=== PATIENT | female | born 1985 | race Caucasian/White ===

== ENCOUNTER 2017-06-02 07:07 | Inpatient (IN) | payer OTHER ==
[2017-06-02] MEDS: Lactated Ringers 1,000 ML IV SCH ×2 (07:25→12:53)
[2017-06-02] MEDS ORDERED: Nalbuphine 20 MG/1 ML Amp IVPUSH PRN (07:33)
[2017-06-02] MEDS ORDERED: Ondansetron 4 MG/2 ML SDV IVPUSH PRN ×2 (07:33→08:24)
[2017-06-02] MEDS ORDERED: Sodium Chloride 0.9% 10 ML Syringe FLUSH PRN (07:33)
[2017-06-02] MEDS ORDERED: Oxytocin/Lactated Ringers 10 UNIT/1,000 ML BAG IV SCH ×2 (07:45)
--- NOTE | 2017-06-02 07:58 | PCM.LDHP ---
L&D History of Present Illness - General Date of Service: 06/02/17 Admit Problem/Dx: Patient Status Order with Admit Dx/Problem 06/02/17 07:39 Patient Status [ADT] Routine Admission Diagnosis/Problem Admission Diagnosis/Problem Normal Source of Information: Patient History Limitations: Reports: No Limitations - History of Present Illness Introduction:: Patient is a 32 y/o at 39 6/7 wks who presents for IOL. Doing well. Some contractions, but nothing patterned. - Related Data Allergies/Adverse Reactions: Allergies Allergy/AdvReac Type Severity Reaction Status Date / Time No Known Allergies Allergy Verified 01/03/16 08:27 Home Medications: Home Meds Vit W-Ca,Fe,FA(<1 mg) [ Vitamins] 1 tab PO DAILY 01/03/16 [ History] Acetaminophen [Tylenol] 650 mg PO Q6H PRN #0 tablet 01/05/16 [Rx] Benzocaine/Menthol [Dermoplast Pain Relief [place]] 1 spray TOP ASDIRECTED PRN #0 canister 01/05/16 [Rx] Docusate Sodium [Colace] 100 mg PO BID PRN #0 cap 01/05/16 [Rx] Ibuprofen [IJD: Ibuprofen] 200 - 600 mg PO Q6H PRN #0 tablet 01/05/16 [Rx] Witch Oneyda [Tucks] 1 pad TOP ASDIRECTED PRN #0 pad 01/05/16 [Rx] Past Medical History [employer] History: Reports: : 4 Para: 3 LMP (Approximate): Psychiatric History: Reports: None, Depression (History of) - Past Surgical History HEENT Surgical History: Reports: Naso-Sinus Surgery, Oral Surgery, Tonsillectomy Musculoskeletal Surgical History: Reports: Other (See Below) (Knee surgery - left) Social & Family History - Family History Family Medical History: Noncontributory - Tobacco Use Smoking Status *Q: Never Smoker Second Hand Smoke Exposure: No - Caffeine Use Caffeine Use: Reports: Coffee, Soda - Alcohol Use Alcohol Use History: No Days Per Week of Alcohol Use: 0 - Recreational Drug Use Recreational Drug Use: No H&P Review of Systems - Review of Systems: Review Of Systems: See Below General: Reports: No Symptoms Pulmonary: Reports: No Symptoms Cardiovascular: Reports: No Symptoms Gastrointestinal: Reports: No Symptoms Genitourinary: Reports: No Symptoms Musculoskeletal: Reports: No Symptoms Psychiatric: Reports: No Symptoms Neurological: Reports: No Symptoms L&D Exam - Exam Exam: See Below - Vital Signs Weight: 78.471 kg - OB Specific Contraction Intensity: Irritability Movement: Active Heart Tones: Present Heart Tones per Min: 125 Heart Rate (FHR) Variability: Moderate (6-25 bmp) Presentation: Vertex - Osman Score Osman Score Cervix Position: Midposition Osman Score Consistency: Soft Osman Score Effacement: 51-70% Osman Score Dilation: 1-2 cm Osman Score Infant's Station: -2 Osman Score Total: 7 - Exam General: Alert, Oriented, Cooperative Lungs: Clear to Auscultation, Normal Respiratory Effort Cardiovascular: Regular Rate, Regular Rhythm GI/Abdominal Exam: Soft, Non-Tender Genitourinary: Normal external exam Extremities: Normal Inspection Skin: Warm, Dry, Intact - Problem List (1) 39 weeks gestation of SNOMED Code(s): 65917711 ICD Code: Z3A.39 - 39 WEEKS GESTATION OF Status: Acute Current Visit: No (2) Elective induction of labor planned SNOMED Code(s): 566130992 ICD Code: [id number] - Status: Acute Current Visit: No Problem List Initiated/Reviewed/Updated: Yes Orders Last 24hrs: Active Orders 24 hr Category Date Time Status Patient Status [ADT] Routine ADT 06/02/17 07:39 Active Activity as Tolerated [RC] PFP Care 06/02/17 07:34 Active Communication Order [RC] ASDIRECTED Care 06/02/17 07:34 Active Communication Order [RC] ASDIRECTED Care 06/02/17 07:34 Active Communication Order [RC] ASDIRECTED Care 06/02/17 07:34 Active Heart Tones [RC] ASDIRECTED Care 06/02/17 07:39 Active Notify Provider [RC] ASDIRECTED Care 06/02/17 07:34 Active Notify Provider [RC] PRN Care 06/02/17 07:34 Active Peripheral IV Care [RC] . DIRECTED Care 06/02/17 07:39 Active Up ad Claudette [RC] ASDIRECTED Care 06/02/17 07:38 Active Vaginal Exam [RC] ASDIRECTED Care 06/02/17 07:34 Active Vital Signs [RC] ASDIRECTED Care 06/02/17 07:34 Active Vital Signs [RC] PER UNIT ROUTINE Care 06/02/17 07:34 Active Regular Diet [DIET] Diet 06/02/17 Breakfast Active CBC W/O DIFF,HEMOGRAM [HEME] Routine Lab 06/02/17 07:33 Ordered TYPE AND SCREEN [BBK] Routine Lab 06/02/17 07:33 Ordered Lactated Ringers [Ringers, Lactated] 1,000 ml Med 06/02/17 07:45 Active IV ASDIRECTED Nalbuphine [Nubain] Med 06/02/17 07:33 Active 10 mg IVPUSH Q2H PRN Ondansetron [Zofran] Med 06/02/17 07:33 Active 4 mg IVPUSH Q4H PRN Oxytocin/Lactated Ringers [Pitocin in LR 10 Units/1,000 Med 06/02/17 07:45 Active ML] 10 unit in 1,000 ml IV .CONTINUOUS Oxytocin/Lactated Ringers [Pitocin in LR 10 Units/1,000 Med 06/02/17 07:45 Active ML] 10 unit in 1,000 ml IV TITRATE Sodium Chloride 0.9% [Saline Flush] Med 06/02/17 07:33 Active 10 ml FLUSH ASDIRECTED PRN Electronic Heart Tones Ext w TOCO [WOMSER] Oth 06/02/17 07:34 Ordered Routine Electronic Heart Tones Internal [WOMSER] Per Unit Oth 06/02/17 07:34 Ordered Routine Peripheral IV Insertion Adult [OM.PC] Routine Oth 06/02/17 07:34 Ordered Resuscitation Status Routine Resus Stat 06/02/17 07:33 Ordered Medication Orders Lactated Ringer's (Ringers, Lactated) 1,000 mls @ 40 mls/hr IV ASDIRECTED ROHIT Oxytocin/Lactated Ringer's (Pitocin In Lr 10 Units/1,000 Ml) 10 unit in 1,000 mls @ 12 mls/hr IV TITRATE ROHIT; Protocol Oxytocin/Lactated Ringer's (Pitocin In Lr 10 Units/1,000 Ml) 10 unit in 1,000 mls @ 500 mls/hr IV .CONTINUOUS ROHIT Nalbuphine HCl (Nubain) 10 mg IVPUSH Q2H PRN PRN Reason: Pain (moderate 4-6) Ondansetron HCl (Zofran) 4 mg IVPUSH Q4H PRN PRN Reason: Nausea/Vomiting Sodium Chloride (Saline Flush) 10 ml FLUSH ASDIRECTED PRN PRN Reason: Keep Vein Open Assessment/Plan Comment:: 32 y/o at 39 6/7 wks who presents for elective IOL * CBC and T&S * GBS negative, no need for antibiotics * Pitocin with eventual AROM for IOL * Pain management per patient preference * Anticipate
[2017-06-02] MEDS ORDERED: Calcium Carbonate 500 MG Tab.Chew PO PRN (08:03)
[2017-06-02] MEDS ORDERED: fentaNYL 100 MCG/2 ML SDV EPIDUR PRN (08:24)
[2017-06-02] MEDS ORDERED: ePHEDrine 50 MG/ML SDV IVPUSH PRN (08:24)
[2017-06-02] MEDS ORDERED: Bupivacaine/fentaNYL/NS 100 ML Bag EPIDUR SCH (08:30)
--- NOTE | 2017-06-02 08:32 | PCM.PREANE ---
Preanesthetic Assessment - Anesthesia/Transfusion/Family Hx Anesthesia History: Prior Anesthesia Without Reaction Family History of Anesthesia Reaction: No Transfusion History: No Prior Transfusion(s) Intubation History: Unknown - Review of Systems General: No Symptoms Pulmonary: Cough Cardiovascular: No Symptoms Gastrointestinal: No Symptoms (GERD) Neurological: No Symptoms Other: Reports: None (nasal congestion noted) - Physical Assessment NPO Status Date: 06/02/17 NPO Status Time: 06:30 Pulse: 74 O2 Sat by Pulse Oximetry: 99 Respiratory Rate: 16 Blood Pressure: 140/85 Temperature: 36.8 C Vital Signs: Last Vital Signs Temp Pulse 74 06/02/17 08:01 Resp BP Pulse Ox Height: 1.52 m Weight: 78.471 kg ASA Class: 2 Mental Status: Alert & Oriented x3 Airway Class: Mallampati = 2 Dentition: Reports: Normal Dentition, Caries Thyro-Mental Finger Breadths: 3 Mouth Opening Finger Breadths: 3 ROM/Head Extension: Full Lungs: Clear to Auscultation, Normal Respiratory Effort Cardiovascular: Regular Rate, Regular Rhythm, No Murmurs - Lab Values: Laboratory Last Values WBC 11.59 K/mm3 (3.98-10.04) H 06/02/17 07:50 RBC 4.27 M/mm3 (3.98-5.22) 06/02/17 07:50 Hgb 12.7 gm/L (11.2-15.7) 06/02/17 07:50 Hct 38.0 % (34.1-44.9) 06/02/17 07:50 MCV 89.0 fl (79.4-94.8) 06/02/17 07:50 MCH 29.7 pg (25.6-32.2) 06/02/17 07:50 MCHC 33.4 g/dl (32.2-35.5) 06/02/17 07:50 RDW Std Deviation 41.0 fL (36.4-46.3) 06/02/17 07:50 Plt Count 187 K/mm3 (182-369) 06/02/17 07:50 MPV 9.3 fl (9.4-12.3) L 06/02/17 07:50 Above labs reviewed and noted and within acceptable ranges to proceed with requested epidural. 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: Psychiatric History: Reports: None, Depression (History of) - Past Surgical History HEENT Surgical History: Reports: Naso-Sinus Surgery, Oral Surgery, Tonsillectomy Musculoskeletal Surgical History: Reports: Other (See Below) (Knee surgery - left) - SUBSTANCE USE Smoking Status *Q: Never Smoker Tobacco Use Within Last Twelve Months: No Second Hand Smoke Exposure: No Days Per Week of Alcohol Use: 0 Recreational Drug Use History: No - HOME MEDS Home Medications: Home Meds Vit W-Ca,Fe,FA(<1 mg) [ Vitamins] 1 tab PO DAILY 01/03/16 [ History] Acetaminophen [Tylenol] 650 mg PO Q6H PRN #0 tablet 01/05/16 [Rx] Benzocaine/Menthol [Dermoplast Pain Relief [place]] 1 spray TOP ASDIRECTED PRN #0 canister 01/05/16 [Rx] Docusate Sodium [Colace] 100 mg PO BID PRN #0 cap 01/05/16 [Rx] Ibuprofen [IJD: Ibuprofen] 200 - 600 mg PO Q6H PRN #0 tablet 01/05/16 [Rx] Witch Oneyda [Tucks] 1 pad TOP ASDIRECTED PRN #0 pad 01/05/16 [Rx] - CURRENT (IN HOUSE) MEDS Current Meds: Current Medications Calcium Carbonate/Glycine (Tums) 1,000 mg PO Q2H PRN PRN Reason: Indigestion Ephedrine Sulfate (Ephedrine Sulfate) 5 mg IVPUSH ASDIRECTED PRN PRN Reason: Hypotension Fentanyl (Sublimaze) 100 mcg EPIDUR Q3H PRN PRN Reason: Pain Fentanyl/Bupivacaine HCl (Fentanyl/Bupivacaine/Ns 2 Mcg-0.125% 100 Ml) 100 ml EPIDUR ASDIRECTED ROHIT Lactated Ringer's (Ringers, Lactated) 1,000 mls @ 40 mls/hr IV ASDIRECTED ROHIT Oxytocin/Lactated Ringer's (Pitocin In Lr 10 Units/1,000 Ml) 10 unit in 1,000 mls @ 12 mls/hr IV TITRATE ROHIT; Protocol Oxytocin/Lactated Ringer's (Pitocin In Lr 10 Units/1,000 Ml) 10 unit in 1,000 mls @ 500 mls/hr IV .CONTINUOUS ROHIT Nalbuphine HCl (Nubain) 10 mg IVPUSH Q2H PRN PRN Reason: Pain (moderate 4-6) Ondansetron HCl (Zofran) 4 mg IVPUSH Q4H PRN PRN Reason: Nausea/Vomiting Ondansetron HCl (Zofran) 4 mg IVPUSH ONETIME PRN PRN Reason: Nausea/Vomiting Sodium Chloride (Saline Flush) 10 ml FLUSH ASDIRECTED PRN PRN Reason: Keep Vein Open
--- NOTE | 2017-06-02 17:21 | PCM.DEL ---
L & D Note - General Info Date of Service: 06/02/17 - Delivery Note Labor: Induced by ARM, Induced by Oxytocin Delivery Outcome: Livebirth Infant Delivery Method: Spontaneous Vaginal Delivery-Single Infant Delivery Mode: Spontaneous Presentation: Right Occiput Anterior (YEISON) Nuchal Cord: Present (Tight, not reduced) Anesthesia Type: Epidural Amniotic Fluid Description: Clear Episiotomy Type: None Laceration: None Placenta: Intact, Spontaneous Cord: 3 Vessels Estimated Blood Loss: 250 Resuscitation Needed: Yes [place]: Bulb Syringe, Stimulated, Warmed, [place] Used Delivery Comments (Free Text/Narrative):: Patient found to be complete and began pushing. With maternal pushing effort head delivered from YEISON presentation. Tight nuchal cord present and not reduced. With gentle downward traction the shoulders and body delivered. Infant placed on maternal abdomen. Cord clamped and cut. Cord blood obtained. Placenta allowed time to separate and expelled intact. No lacerations noted - Patient Data Vitals - Most Recent: Last Vital Signs Temp 36.8 C 06/02/17 08:44 Pulse 66 06/02/17 13:31 Resp 16 06/02/17 08:44 BP 142/78 H 06/02/17 13:31 Pulse Ox 99 06/02/17 08:44 Weight - Most Recent: 78.471 kg I&O - Last 24 Hours: Intake & Output 06/02/17 06/02/17 06/02/17 06:59 14:59 22:59 Intake Total 1000 Balance 1000 Lab Results Last 24 Hours: Laboratory Results - last 24 hr 06/02/17 06/02/17 Range/Units 07:50 07:50 WBC 11.59 H (3.98-10.04) K/mm3 RBC 4.27 (3.98-5.22) M/mm3 Hgb 12.7 (11.2-15.7) gm/L Hct 38.0 (34.1-44.9) % MCV 89.0 (79.4-94.8) fl MCH 29.7 (25.6-32.2) pg MCHC 33.4 (32.2-35.5) g/dl RDW Std Deviation 41.0 (36.4-46.3) fL Plt Count 187 (182-369) K/mm3 MPV 9.3 L (9.4-12.3) fl Blood Type O POSITIVE Gel Antibody Screen Negative Med Orders - Current: Current Medications Calcium Carbonate/Glycine (Tums) 1,000 mg PO Q2H PRN PRN Reason: Indigestion Last Admin: 06/02/17 08:32 Dose: 1,000 mg Ephedrine Sulfate (Ephedrine Sulfate) 5 mg IVPUSH ASDIRECTED PRN PRN Reason: Hypotension Fentanyl (Sublimaze) 100 mcg EPIDUR Q3H PRN PRN Reason: Pain Last Admin: 06/02/17 12:47 Dose: 100 mcg Fentanyl/Bupivacaine HCl (Fentanyl/Bupivacaine/Ns 2 Mcg-0.125% 100 Ml) 100 ml EPIDUR ASDIRECTED ROHIT Last Admin: 06/02/17 12:46 Dose: 100 ml Lactated Ringer's (Ringers, Lactated) 1,000 mls @ 40 mls/hr IV ASDIRECTED ROHIT Last Admin: 06/02/17 12:53 Dose: 250 mls/hr Oxytocin/Lactated Ringer's (Pitocin In Lr 10 Units/1,000 Ml) 10 unit in 1,000 mls @ 12 mls/hr IV TITRATE ROHIT; Protocol Last Titration: 06/02/17 10:12 Dose: 8 munits/min, 48 mls/hr Oxytocin/Lactated Ringer's (Pitocin In Lr 10 Units/1,000 Ml) 10 unit in 1,000 mls @ 500 mls/hr IV .CONTINUOUS ROHIT Nalbuphine HCl (Nubain) 10 mg IVPUSH Q2H PRN PRN Reason: Pain (moderate 4-6) Ondansetron HCl (Zofran) 4 mg IVPUSH Q4H PRN PRN Reason: Nausea/Vomiting Ondansetron HCl (Zofran) 4 mg IVPUSH ONETIME PRN PRN Reason: Nausea/Vomiting Sodium Chloride (Saline Flush) 10 ml FLUSH ASDIRECTED PRN PRN Reason: Keep Vein Open - Problem List & Annotations (1) 39 weeks gestation of SNOMED Code(s): 52147923 Code(s): Z3A.39 - 39 WEEKS GESTATION OF Status: Acute Current Visit: No (2) Elective induction of labor planned SNOMED Code(s): 004563752 Code(s): HGU5549 - Status: Acute Current Visit: No (3) Vaginal delivery SNOMED Code(s): 565975450 Code(s): O80 - ENCOUNTER FOR FULL-TERM UNCOMPLICATED DELIVERY Status: Acute Current Visit: No - Problem List Review Problem List Initiated/Reviewed/Updated: Yes - My Orders Last 24 Hours: My Active Orders 06/02/17 07:33 Nalbuphine [Nubain] 10 mg IVPUSH Q2H PRN Ondansetron [Zofran] 4 mg IVPUSH Q4H PRN Sodium Chloride 0.9% [Saline Flush] 10 ml FLUSH ASDIRECTED PRN Resuscitation Status Routine 06/02/17 07:34 Activity as Tolerated [RC] PFP Communication Order [RC] ASDIRECTED Communication Order [RC] ASDIRECTED Vital Signs [RC] ASDIRECTED Electronic Heart Tones Ext w TOCO [WOMSER] Routine Electronic Heart Tones Internal [WOMSER] Per Unit Routine Peripheral IV Insertion Adult [OM.PC] Routine 06/02/17 07:38 Up ad Claudette [RC] ASDIRECTED 06/02/17 07:39 Patient Status [ADT] Routine Heart Tones [RC] ASDIRECTED Peripheral IV Care [RC] Q2HR 06/02/17 07:45 Lactated Ringers [Ringers, Lactated] 1,000 ml IV ASDIRECTED Oxytocin/Lactated Ringers [Pitocin in LR 10 Units/1,000 ML] 10 unit in 1,000 ml IV .CONTINUOUS Oxytocin/Lactated Ringers [Pitocin in LR 10 Units/1,000 ML] 10 unit in 1,000 ml IV TITRATE 06/02/17 08:03 Calcium Carbonate [Tums] 1,000 mg PO Q2H PRN 06/02/17 Breakfast Regular Diet [DIET] - Assessment Assessment:: 32 y/o G4 now P4004 PPD#0 from at 39 6/7 wks - Plan Plan:: * Routine cares * Encourage breast feeding * Discharge home in 1-2 days
[2017-06-02] MEDS ORDERED: Bupivacaine 0.25% 10 ML SDV ONE (19:00)
[2017-06-02] MEDS ORDERED: Docusate Sodium 100 MG Cap PO PRN (19:23)
[2017-06-02] MEDS ORDERED: Acetaminophen 325 MG Tab PO PRN (19:23)
[2017-06-02] MEDS ORDERED: Benzocaine/Menthol 20%-0.5% Spray 56 GM Canister TOP PRN (19:23)
[2017-06-02] MEDS ORDERED: Witch Hazel Medicated Pads 100/Jar TOP PRN (19:23)
[2017-06-02] MEDS ORDERED: Lanolin 100% Cream 7 GM Tube TOP PRN (19:23)
[2017-06-02] MEDS: Ibuprofen 600 MG Tab PO PRN (20:29)
--- NOTE | 2017-06-03 02:00 | PCM.PNPP ---
- General Info Date of Service: 06/03/17 Functional Status: Reports: Pain Controlled, Tolerating Diet, Ambulating, Urinating - Review of Systems General: Reports: No Symptoms Pulmonary: Reports: No Symptoms Cardiovascular: Reports: No Symptoms Gastrointestinal: Reports: No Symptoms Genitourinary: Reports: No Symptoms Musculoskeletal: Reports: No Symptoms - Patient Data Vital Signs - Most Recent: Last Vital Signs Temp 36.7 C 06/02/17 20:30 Pulse 55 L 06/02/17 20:30 Resp 16 06/02/17 20:30 BP 116/68 06/02/17 20:30 Pulse Ox 98 06/02/17 20:30 Weight - Most Recent: 78.471 kg I&O - Last 24 Hours: Intake & Output 06/02/17 06/02/17 06/03/17 14:59 22:59 06:59 Intake Total 1000 60 Output Total 1000 Balance 1000 -940 Lab Results - Last 24 Hours: Laboratory Results - last 24 hr 06/02/17 06/02/17 Range/Units 07:50 07:50 WBC 11.59 H (3.98-10.04) K/mm3 RBC 4.27 (3.98-5.22) M/mm3 Hgb 12.7 (11.2-15.7) gm/L Hct 38.0 (34.1-44.9) % MCV 89.0 (79.4-94.8) fl MCH 29.7 (25.6-32.2) pg MCHC 33.4 (32.2-35.5) g/dl RDW Std Deviation 41.0 (36.4-46.3) fL Plt Count 187 (182-369) K/mm3 MPV 9.3 L (9.4-12.3) fl Blood Type O POSITIVE Gel Antibody Screen Negative Med Orders - Current: Current Medications Acetaminophen (Tylenol) 650 mg PO Q4H PRN PRN Reason: mild pain or fever Benzocaine/Menthol (Dermoplast Pain Relief [place]) 0 gm TOP ASDIRECTED PRN PRN Reason: Perineal Comfort Measure Last Admin: 06/02/17 20:30 Dose: 1 applic Docusate Sodium (Colace) 100 mg PO BID PRN PRN Reason: Constipation Emollient Ointment (Lansinoh Hpa) 0 gm TOP ASDIRECTED PRN PRN Reason: Sore Nipples Ibuprofen (Motrin) 600 mg PO Q6H PRN PRN Reason: Mild pain or fever Last Admin: 06/02/17 20:29 Dose: 600 mg Witch Oneyda (Tucks) 1 pad TOP ASDIRECTED PRN PRN Reason: Hemorrhoid pain Last Admin: 06/02/17 20:30 Dose: 1 applic Discontinued Medications Calcium Carbonate/Glycine (Tums) 1,000 mg PO Q2H PRN PRN Reason: Indigestion Last Admin: 06/02/17 08:32 Dose: 1,000 mg Ephedrine Sulfate (Ephedrine Sulfate) 5 mg IVPUSH ASDIRECTED PRN PRN Reason: Hypotension Fentanyl (Sublimaze) 100 mcg EPIDUR Q3H PRN PRN Reason: Pain Last Admin: 06/02/17 12:47 Dose: 100 mcg Fentanyl/Bupivacaine HCl (Fentanyl/Bupivacaine/Ns 2 Mcg-0.125% 100 Ml) 100 ml EPIDUR ASDIRECTED ROHIT Last Admin: 06/02/17 12:46 Dose: 100 ml Lactated Ringer's (Ringers, Lactated) 1,000 mls @ 40 mls/hr IV ASDIRECTED ROHIT Last Admin: 06/02/17 12:53 Dose: 250 mls/hr Oxytocin/Lactated Ringer's (Pitocin In Lr 10 Units/1,000 Ml) 10 unit in 1,000 mls @ 12 mls/hr IV TITRATE ROHIT; Protocol Last Titration: 06/02/17 10:12 Dose: 8 munits/min, 48 mls/hr Oxytocin/Lactated Ringer's (Pitocin In Lr 10 Units/1,000 Ml) 10 unit in 1,000 mls @ 500 mls/hr IV .CONTINUOUS ROHIT Nalbuphine HCl (Nubain) 10 mg IVPUSH Q2H PRN PRN Reason: Pain (moderate 4-6) Ondansetron HCl (Zofran) 4 mg IVPUSH Q4H PRN PRN Reason: Nausea/Vomiting Ondansetron HCl (Zofran) 4 mg IVPUSH ONETIME PRN PRN Reason: Nausea/Vomiting Sodium Chloride (Saline Flush) 10 ml FLUSH ASDIRECTED PRN PRN Reason: Keep Vein Open - Interaction Disposition, : [place] in Room with Family Interaction: Holding Infant Feeding: Breastfed Infant; Nursed Well Support Person: - Recovery Exam Fundal Tone: Firm Fundal Level: At Umbilicus Fundal Placement: Midline Lochia Amount: Small Lochia Color: Rubra/Red Bladder Status: Voiding Urinary Elimination: Voided - Exam General: Alert, Oriented, Cooperative GI/Abdominal Exam: Soft, Non-Tender Extremities: Normal Inspection Skin: Warm, Dry, Intact - Problem List & Annotations (1) 39 weeks gestation of SNOMED Code(s): 36958900 Code(s): Z3A.39 - 39 WEEKS GESTATION OF Status: Acute (2) Elective induction of labor planned SNOMED Code(s): 927083968 Code(s): DHO1910 - Status: Acute (3) Vaginal delivery SNOMED Code(s): 364031499 Code(s): O80 - ENCOUNTER FOR FULL-TERM UNCOMPLICATED DELIVERY Status: Acute - Problem List Review Problem List Initiated/Reviewed/Updated: Yes - My Orders Last 24 Hours: My Active Orders 06/02/17 07:33 Resuscitation Status Routine 06/02/17 19:23 Activity as Tolerated [RC] PER UNIT ROUTINE Vital Signs [RC] 04,12,20 Acetaminophen [Tylenol] 650 mg PO Q4H PRN Benzocaine/Menthol [Dermoplast Pain Relief [place]] See Dose Instructions TOP ASDIRECTED PRN Docusate Sodium [Colace] 100 mg PO BID PRN Ibuprofen [Motrin] 600 mg PO Q6H PRN Lanolin [Lansinoh HPA] See Dose Instructions TOP ASDIRECTED PRN Witch Oneyda [Tucks] 1 pad TOP ASDIRECTED PRN Assess Lochia [WOMSER] Per Unit Routine Assess Uterine Involution [WOMSER] Per Unit Routine Breast Pump [WOMSER] Per Unit Routine Heat Therapy [OM.PC] PRN Ice Therapy [OM.PC] Per Unit Routine Medication Administration Instruction [OM.PC] Routine Perineal Care [OM.PC] Per Unit Routine Peripheral IV Discontinue [OM.PC] Routine Sitz Bath [OM.PC] Per Unit Routine 06/02/17 Dinner Regular Diet [DIET] 06/03/17 19:23 Heat Therapy [OM.PC] PRN - Assessment Assessment:: 32 y/o G4 now P4004 PPD#1 from at 39 6/7 wks - Plan Plan:: * Routine cares * Encourage breast feeding * Discharge home today
[2017-06-03] MEDS: Ibuprofen 600 MG Tab PO PRN ×2 (03:47→08:04)
--- NOTE | 2017-06-03 06:50 | PCM.DCSUM1 ---
Discharge Summary - Discharge Data Discharge Date: 06/03/17 Discharge Disposition: Home, Self-Care 01 Condition: Good - Discharge Diagnosis/Problem(s) (1) 39 weeks gestation of SNOMED Code(s): 01909267 ICD Code: Z3A.39 - 39 WEEKS GESTATION OF Status: Acute (2) Elective induction of labor planned SNOMED Code(s): 101488539 ICD Code: [id number] - Status: Acute (3) Vaginal delivery SNOMED Code(s): 421433838 ICD Code: O80 - ENCOUNTER FOR FULL-TERM UNCOMPLICATED DELIVERY Status: Acute - Patient Summary/Data Complications: None Consults: None Recommended Follow-up Testing/Procedures: Follow up in in 3-6 weeks for check Hospital Course: Patient is a 32 y/o at 39 6/7 wks who presented for elective IOL. This was done with pitocin and AROM. She progressed well to complete dilation and underwent an uncomplicated . See delivery note. she did well and was discharged home on PPD#1 - Patient Instructions Diet: Regular Diet as Tolerated Activity: As Tolerated Activity, Other: Pelvic Rest for 6 weeks Driving: May Drive Today Showering/Bathing: May Shower Showering/Bathing, Other: May bathe Notify Provider of: Fever, Increased Pain, Swelling and Redness, Drainage, Nausea and/or Vomiting - Discharge Plan Home Medications: Home Meds Vit W-Ca,Fe,FA(<1 mg) [ Vitamins] 1 tab PO DAILY 01/03/16 [ History] Acetaminophen [Tylenol] 650 mg PO Q6H PRN #0 tablet 01/05/16 [Rx] Docusate Sodium [Colace] 100 mg PO BID PRN #0 cap 01/05/16 [Rx] Ibuprofen [IJD: Ibuprofen] 200 - 600 mg PO Q6H PRN #0 tablet 01/05/16 [Rx] Patient Handouts: Exclusive , Care After Vaginal Delivery Referrals: Brittnee Mendes MD [Primary Care Provider] - (3-6 weeks for check ) - Discharge Summary/Plan Comment DC Time >30 min.: No - Patient Data Vitals - Most Recent: Last Vital Signs Temp 36.9 C 06/03/17 03:20 Pulse 53 L 06/03/17 03:20 Resp 15 06/03/17 03:20 BP 130/63 06/03/17 03:20 Pulse Ox 98 06/03/17 03:20 Weight - Most Recent: 78.471 kg I&O - Last 24 hours: Intake & Output 06/02/17 06/02/17 06/03/17 14:59 22:59 06:59 Intake Total 1000 60 Output Total 1000 Balance 1000 -940 Lab Results - Last 24 hrs: Laboratory Results - last 24 hr 06/02/17 06/02/17 Range/Units 07:50 07:50 WBC 11.59 H (3.98-10.04) K/mm3 RBC 4.27 (3.98-5.22) M/mm3 Hgb 12.7 (11.2-15.7) gm/L Hct 38.0 (34.1-44.9) % MCV 89.0 (79.4-94.8) fl MCH 29.7 (25.6-32.2) pg MCHC 33.4 (32.2-35.5) g/dl RDW Std Deviation 41.0 (36.4-46.3) fL Plt Count 187 (182-369) K/mm3 MPV 9.3 L (9.4-12.3) fl Blood Type O POSITIVE Gel Antibody Screen Negative Med Orders - Current: Current Medications Acetaminophen (Tylenol) 650 mg PO Q4H PRN PRN Reason: mild pain or fever Benzocaine/Menthol ([employer]) 0 gm TOP ASDIRECTED PRN PRN Reason: Perineal Comfort Measure Last Admin: 06/02/17 20:30 Dose: 1 applic Docusate Sodium (Colace) 100 mg PO BID PRN PRN Reason: Constipation Emollient Ointment (Lansinoh Hpa) 0 gm TOP ASDIRECTED PRN PRN Reason: Sore Nipples Ibuprofen (Motrin) 600 mg PO Q6H PRN PRN Reason: Mild pain or fever Last Admin: 06/03/17 03:47 Dose: 600 mg Witch Oneyda (Tucks) 1 pad TOP ASDIRECTED PRN PRN Reason: Hemorrhoid pain Last Admin: 06/02/17 20:30 Dose: 1 applic Discontinued Medications Calcium Carbonate/Glycine (Tums) 1,000 mg PO Q2H PRN PRN Reason: Indigestion Last Admin: 06/02/17 08:32 Dose: 1,000 mg Ephedrine Sulfate (Ephedrine Sulfate) 5 mg IVPUSH ASDIRECTED PRN PRN Reason: Hypotension Fentanyl (Sublimaze) 100 mcg EPIDUR Q3H PRN PRN Reason: Pain Last Admin: 06/02/17 12:47 Dose: 100 mcg Fentanyl/Bupivacaine HCl (Fentanyl/Bupivacaine/Ns 2 Mcg-0.125% 100 Ml) 100 ml EPIDUR ASDIRECTED ROHIT Last Admin: 06/02/17 12:46 Dose: 100 ml Lactated Ringer's (Ringers, Lactated) 1,000 mls @ 40 mls/hr IV ASDIRECTED ROHIT Last Admin: 06/02/17 12:53 Dose: 250 mls/hr Oxytocin/Lactated Ringer's (Pitocin In Lr 10 Units/1,000 Ml) 10 unit in 1,000 mls @ 12 mls/hr IV TITRATE ROHIT; Protocol Last Titration: 06/02/17 10:12 Dose: 8 munits/min, 48 mls/hr Oxytocin/Lactated Ringer's (Pitocin In Lr 10 Units/1,000 Ml) 10 unit in 1,000 mls @ 500 mls/hr IV .CONTINUOUS ROHIT Nalbuphine HCl (Nubain) 10 mg IVPUSH Q2H PRN PRN Reason: Pain (moderate 4-6) Ondansetron HCl (Zofran) 4 mg IVPUSH Q4H PRN PRN Reason: Nausea/Vomiting Ondansetron HCl (Zofran) 4 mg IVPUSH ONETIME PRN PRN Reason: Nausea/Vomiting Sodium Chloride (Saline Flush) 10 ml FLUSH ASDIRECTED PRN PRN Reason: Keep Vein Open
[2017-06-03 08:32] VITALS: BP 134/76
== END 2017-06-03 17:35 | disposition home or self-care (01) | DRG 775 ==
LOC: JD.OBCHECK 07:07 → JD.OB 07:08 → OBSVTOIN 15:46 → JD.OB 15:47
PROVIDERS: ADMIT Obstetrics & Gynecology; ATTEND Obstetrics & Gynecology
PROC: 10E0XZZ Delivery of Products of Conception, External Approach (ICD-10-PCS; principal; 2017-06-02)
PROC: 6A550ZT Pheresis of Cord Blood Stem Cells, Single (ICD-10-PCS; 2017-06-02)
PROC: 10907ZC Drainage of Amniotic Fluid, Therapeutic from Products of Conception, Via Natural or Artificial Opening (ICD-10-PCS; 2017-06-02)
PROC: 3E033VJ Introduction of Other Hormone into Peripheral Vein, Percutaneous Approach (ICD-10-PCS; 2017-06-02)
PROC: 00HU33Z Insertion of Infusion Device into Spinal Canal, Percutaneous Approach (ICD-10-PCS; 2017-06-02)
PROC: 3E0R3BZ Introduction of Anesthetic Agent into Spinal Canal, Percutaneous Approach (ICD-10-PCS; 2017-06-02)
DX: O69.1XX0 Labor and delivery complicated by cord around neck, with compression, not applicable or unspecified (principal); Z3A.39 39 weeks gestation of pregnancy; Z37.0 Single live birth
CPT/HCPCS: 36415; 51702; 59025; 59409; 85027; 86850; 86900; 86901; A9270-GY; J2590; J3010; J7120

== ENCOUNTER 2024-08-09 18:59 | Emergency (ER) | payer BC ==
[2024-08-09] MEDS: Magnesium Sulf/Wat 4 GM/50 mL 4 GM in Premix Bag 1 BAG IV ONE (19:49)
[2024-08-09 19:51] LABS: BASOPHILS PERCENT AUTO 0.2 % (0.0-1.0); EOSINOPHILS ABSOLUTE AUTO 0.1 K/mm3 (0.0-0.4); EOSINOPHILS PERCENT AUTO 0.5 % (0.0-6.0); HEMATOCRIT 41.4 % (37.0-47.0); HEMOGLOBIN 14.2 gm/dl (12.0-16.0); IMMATURE GRAN ABSOLUTE AUTO 0.07 K/mm3 (0.00-0.05); IMMATURE GRAN PERCENT AUTO 0.5 % (0.0-0.4); LYMPHOCYTES ABSOLUTE AUTO 1.8 K/mm3 (1.0-4.8); LYMPHOCYTES PERCENT AUTO 13.3 % (24.0-44.0); MEAN CORPUSCULAR HGB CONC 34.3 g/dl (32.0-36.0); MEAN CORPUSCULAR VOLUME 87.5 fl (83.0-99.0); MEAN PLATELET VOLUME 9.3 fl (9.4-12.3); MONOCYTES ABSOLUTE AUTO 0.8 K/mm3 (0.0-0.8); MONOCYTES PERCENT AUTO 6.2 % (0.0-8.0); NEUTROPHILS ABSOLUTE AUTO 10.7 K/mm3 (1.8-7.7); NEUTROPHILS PERCENT AUTO 79.3 % (41.0-71.0); PLATELET COUNT,PLT 237 K/mm3 (150-400); RED BLOOD CELL COUNT 4.73 M/mm3 (4.10-5.30); WHITE BLOOD CELL COUNT,WBC 13.45 K/mm3 (3.9-11.3)
[2024-08-09 20:13] LABS: A/G RATIO 0.7 (1-2); ALBUMIN 2.7 g/dl (3.4-5.0); BILIRUBIN TOTAL 0.3 mg/dL (0.2-1.0); CALCIUM 8.9 mg/dL (8.5-10.1); EST CRCL DRUG DOSING (CG) 54.79 mL/min; MAGNESIUM 1.8 mg/dL (1.8-2.4); PROTEIN TOTAL,TP 6.5 g/dl (6.4-8.2)
[2024-08-09 20:21] LABS: APPEARANCE,URINE CLEAR (Clear); BILIRUBIN,URINE NEGATIVE (Negative); COLOR,URINE LIGHT YELLOW (Yellow); GLUCOSE,URINE NEGATIVE (Negative); KETONES,URINE NEGATIVE (Negative); LEUKOCYTE ESTERASE,URINE 1+ (Negative); NITRITE,URINE NEGATIVE (Negative); OCCULT BLOOD,URINE 2+ (Negative); PH,URINE 6.5 (5.0-8.0); PROTEIN,URINE NEGATIVE (Negative); UROBILINOGEN,URINE 0.2 (0.2-1.0)
[2024-08-09 21:11] LABS: BACTERIA,URINE FEW /hpf (FEW); MUCUS,URINE FEW /hpf (FEW)
[2024-08-09 21:16] VITALS: BP 128/77; PULSE 98
[2024-08-09 22:49] LABS: CREATININE,URINE RAND < 13.0 mg/dL (30.0-125.0)
[2024-08-09 22:50] LABS: PROTEIN,URINE RANDOM < 6.0 mg/dL (0.0-11.8)
== END 2024-08-09 21:08 | disposition critical access hospital (66) ==
LOC: JD.ED 18:59
DX: O14.95 Unspecified pre-eclampsia, complicating the puerperium (principal); Z79.899 Other long term (current) drug therapy; Z88.0 Allergy status to penicillin
CPT/HCPCS: 36415; 80053; 81001; 83735; 85025; 96365; 99284; J3475; 82570; 84156; 99285

== ENCOUNTER 2024-08-20 15:55 | Emergency (ER) | payer BC ==
[2024-08-20] MEDS: LORazepam 2 MG/ML SDV IVPUSH ONE (16:20)
[2024-08-20 16:27] LABS: BASOPHILS PERCENT AUTO 0.3 % (0.0-1.0); EOSINOPHILS ABSOLUTE AUTO 0.2 K/mm3 (0.0-0.4); EOSINOPHILS PERCENT AUTO 2.1 % (0.0-6.0); HEMATOCRIT 40.1 % (37.0-47.0); HEMOGLOBIN 13.6 gm/dl (12.0-16.0); IMMATURE GRAN ABSOLUTE AUTO 0.02 K/mm3 (0.00-0.05); IMMATURE GRAN PERCENT AUTO 0.3 % (0.0-0.4); LYMPHOCYTES ABSOLUTE AUTO 2.1 K/mm3 (1.0-4.8); LYMPHOCYTES PERCENT AUTO 27.5 % (24.0-44.0); MEAN CORPUSCULAR HGB CONC 33.9 g/dl (32.0-36.0); MEAN CORPUSCULAR VOLUME 88.5 fl (83.0-99.0); MEAN PLATELET VOLUME 8.5 fl (9.4-12.3); MONOCYTES ABSOLUTE AUTO 0.6 K/mm3 (0.0-0.8); MONOCYTES PERCENT AUTO 8.3 % (0.0-8.0); NEUTROPHILS ABSOLUTE AUTO 4.7 K/mm3 (1.8-7.7); NEUTROPHILS PERCENT AUTO 61.5 % (41.0-71.0); PLATELET COUNT,PLT 290 K/mm3 (150-400); RED BLOOD CELL COUNT 4.53 M/mm3 (4.10-5.30); WHITE BLOOD CELL COUNT,WBC 7.63 K/mm3 (3.9-11.3)
[2024-08-20] MEDS ORDERED: Sodium Chloride 0.9% 500 ML IV SCH (16:30)
[2024-08-20 16:33] VITALS: PULSE 62
[2024-08-20 16:48] LABS: A/G RATIO 0.9 (1-2); ALBUMIN 3.1 g/dl (3.4-5.0); BILIRUBIN TOTAL 0.1 mg/dL (0.2-1.0); BUN/CREATININE RATIO 28.9 (14-18); CALCIUM 8.8 mg/dL (8.5-10.1); CREATININE 0.9 mg/dL (0.55-1.02); EST CRCL DRUG DOSING (CG) 60.88 mL/min; MAGNESIUM 2.1 mg/dL (1.8-2.4); PROTEIN TOTAL,TP 6.6 g/dl (6.4-8.2)
[2024-08-20 17:36] LABS: APPEARANCE,URINE CLEAR (Clear); BILIRUBIN,URINE NEGATIVE (Negative); COLOR,URINE YELLOW (Yellow); GLUCOSE,URINE NEGATIVE (Negative); KETONES,URINE NEGATIVE (Negative); LEUKOCYTE ESTERASE,URINE 3+ (Negative); NITRITE,URINE NEGATIVE (Negative); OCCULT BLOOD,URINE 2+ (Negative); PH,URINE 6.5 (5.0-8.0); PROTEIN,URINE NEGATIVE (Negative); UROBILINOGEN,URINE 0.2 (0.2-1.0)
[2024-08-20 17:50] LABS: BARBITURATE SCREEN,URINE NEGATIVE (CUTOFF=200); BENZODIAZEPINES SCREEN,URINE NEGATIVE (CUTOFF=150); BUPRENORPHINE SCREEN,URINE NEGATIVE (CUTOFF=10); METHADONE SCREEN, URINE NEGATIVE (CUTOFF=200); METHAMPHETAMINES SCREEN, URINE NEGATIVE (CUTOFF=500); OXYCODONE SCREEN,URINE NEGATIVE (CUT0FF=100); THC SCREEN,URINE 20 NG/ML NEGATIVE (CUTOFF=50)
[2024-08-20 17:54] LABS: AMPHETAMINES SCREEN, URINE NEGATIVE (CUTOFF=500)
[2024-08-20] MEDS: Ondansetron 4 MG/2 ML SDV IVPUSH ONE ×2 (17:58)
[2024-08-20] MEDS: Acetaminophen 325 MG Tab PO ONE (17:58)
[2024-08-20] MEDS: Ketorolac 30 MG/ML SDV IVPUSH ONE (17:59)
[2024-08-20 18:01] LABS: EPITHELIAL CELLS,URINE 0-5 /hpf (0-5); WBC,URINE 75-100 /hpf (0-5)
[2024-08-20 18:02] LABS: BACTERIA,URINE MODERATE /hpf (FEW); MUCUS,URINE FEW /hpf (FEW); WBC CLUMPS,URINE FEW /hpf (NOT SEEN)
[2024-08-20 18:41] VITALS: BP 143/87
== END 2024-08-20 18:00 | disposition home or self-care (01) ==
LOC: JD.ED 15:55
DX: F41.9 Anxiety disorder, unspecified (principal); I10 Essential (primary) hypertension; Z79.899 Other long term (current) drug therapy; Z88.1 Allergy status to other antibiotic agents; Z88.8 Allergy status to other drugs, medicaments and biological substances
CPT/HCPCS: 36415; 80053; 80306; 81001; 82550; 83735; 85025; 96374; 99284; J2060

== ENCOUNTER 2024-09-15 10:13 | Emergency (ER) | payer BC ==
[2024-09-15 10:35] VITALS: PULSE 65
[2024-09-15] MEDS ORDERED: Sodium Chloride 0.9% 10 ML Syringe FLUSH PRN (10:51)
[2024-09-15 10:59] LABS: APPEARANCE,URINE CLEAR (Clear); GLUCOSE,URINE NEGATIVE (Negative); OCCULT BLOOD,URINE 1+ (Negative)
[2024-09-15 11:00] LABS: BASOPHILS ABSOLUTE AUTO 0.0 K/mm3 (0.0-0.2); BASOPHILS PERCENT AUTO 0.2 % (0.0-1.0); EOSINOPHILS ABSOLUTE AUTO 0.5 K/mm3 (0.0-0.4); EOSINOPHILS PERCENT AUTO 5.0 % (0.0-6.0); IMMATURE GRAN ABSOLUTE AUTO 0.02 K/mm3 (0.00-0.05); IMMATURE GRAN PERCENT AUTO 0.2 % (0.0-0.4); LYMPHOCYTES ABSOLUTE AUTO 1.8 K/mm3 (1.0-4.8); LYMPHOCYTES PERCENT AUTO 18.2 % (24.0-44.0); MEAN PLATELET VOLUME 8.9 fl (9.4-12.3); MONOCYTES ABSOLUTE AUTO 0.9 K/mm3 (0.0-0.8); MONOCYTES PERCENT AUTO 8.7 % (0.0-8.0); NEUTROPHILS ABSOLUTE AUTO 6.8 K/mm3 (1.8-7.7); NEUTROPHILS PERCENT AUTO 67.7 % (41.0-71.0); NRBC ABSOLUTE 0.00 (0.00-0.02); NRBC PERCENT 0.0 % (0.0-0.2); RED BLOOD CELL COUNT 4.71 M/mm3 (4.10-5.30); WHITE BLOOD CELL COUNT,WBC 9.97 K/mm3 (3.9-11.3)
[2024-09-15 11:01] LABS: PLATELET COUNT,PLT 207 K/mm3 (150-400)
[2024-09-15 11:05] LABS: SQUAMOUS EPITHELIAL CELLS,UR 0-5 /hpf (0-5)
[2024-09-15 11:25] LABS: LACTIC ACID 0.4 mmol/L (0.4-2.0)
[2024-09-15 11:31] LABS: A/G RATIO 1.1 (1-2); ALANINE AMINOTRANSFERASE,ALT 33.0 U/L (14-59); ASPARTATE AMNIOTRANSFERASE,AST 37.0 U/L (15-37); BILIRUBIN TOTAL 0.6 mg/dL (0.2-1.0); BLOOD UREA NITROGEN,BUN 12.0 mg/dL (7-18); CARBON DIOXIDE,CO2 32.0 mEq/L (21-32); CHLORIDE,CL 102.0 mEq/L (98-107); CREATININE 0.8 mg/dL (0.55-1.02); EST CRCL DRUG DOSING (CG) 68.49 mL/min; ESTIMATED GFR 97.0 mL/min (>60); GLUCOSE RANDOM 86.0 mg/dL (70-99); POTASSIUM,K 4.0 mEq/L (3.5-5.1); PROTEIN TOTAL,TP 7.6 g/dl (6.4-8.2); SODIUM,NA 140.0 mEq/L (136-145); TROPONIN I HIGH SENSITIVITY 41.0 pg/mL (<=51); TSH 1.376 uIU/mL (0.358-3.74)
[2024-09-15 11:58] VITALS: BP 128/76
== END 2024-09-15 13:14 | disposition home or self-care (01) ==
LOC: JD.ED 10:13
DX: N39.0 Urinary tract infection, site not specified (principal); I10 Essential (primary) hypertension; Z88.0 Allergy status to penicillin; Z88.8 Allergy status to other drugs, medicaments and biological substances; Z79.899 Other long term (current) drug therapy
CPT/HCPCS: 36415; 76705; 76705-26; 80053; 81001; 83605; 83690; 83735; 84443; 84484; 84703; 85025; 87086; 93005; 93010; 99283; 99285